=== PATIENT | male | born 1990 | race Two or more races ===

== ENCOUNTER 2023-02-23 05:24 | Day surgery (SDC) | payer OTHER ==
[~2023-02-23 05:24] MED LIST: PREP
== END 2023-02-23 14:25 | disposition home or self-care (01) ==
LOC: CIR.AMB 05:24
PROVIDERS: ATTEND Urology
DX: N47.6 Balanoposthitis (principal); N47.7 Other inflammatory diseases of prepuce; Z20.822 Contact with and (suspected) exposure to COVID-19